=== PATIENT | female | born 1945 | race Caucasian/White ===

== ENCOUNTER 2024-01-30 15:18 | Inpatient (IN) | payer MEDICARE, OTHER, SELFPAY ==
[2024-01-30 13:16] VITALS: BP 161/82; BMI 26.9
[2024-01-30 13:31] LABS: % Basophils 0.5 % (0-2); % Immature Granulocytes 0.4 % (0-0.5); % Monocytes 8.8 % (1.7-9.3); % Neutrophils 64.3 % (42.2-75.2); Absolute Monocytes 0.7 10^3/uL (0.1-0.6); Absolute Neutrophils 4.9 10^3/uL (1.4-6.5); Hematocrit 35.9 % (37.0-47.0); Hemoglobin 12.2 g/dL (12.0-16.0); Mean Corpuscular Hgb 31.5 pg (27.0-31.0); Mean Corpuscular Volume 92.8 fL (81.0-99.0); Mean Platelet Volume 10.7 fL (7.4-10.4); Nucleated Red Blood Cells % 0 %; Platelet Count 187 10^3/uL (130-400); Red Blood Cell Count 3.87 10^6/uL (4.20-5.40); Red Cell Dist. Width 13.5 % (11.5-14.5); White Blood Cell Count 7.7 10^3/uL (4.8-10.8)
--- NOTE | 2024-01-30 13:33 | ED.GENMED ---
History of Present Illness
<Calvin Beach PA-C - Last Filed: 01/30/24 14:36>
General
Chief Complaint: Fall
Time Seen by Provider: 01/30/24 13:13
Travel History
Have you had any contact with someone who has COVID-19?: No
Do you have any symptoms of coronavirus? Fever > 100 degrees, chills, cough, shortness of breath, sore throat, loss of taste or smell, muscle aches, or headache?: No
History of Present Illness
History of Present Illness:
79-year-old female with history of hypertension and dementia presents to the emergency department for evaluation of a right hip injury sustained after a mechanical fall. [place] when she lost her balance and fell
to the ground. There was no head strike or loss of consciousness. According to the she is at her baseline mental status. On arrival she has notable shortening and external rotation of the right lower extremity
Past History
<Calvin Beach PA-C - Last Filed: 01/30/24 14:36>
Past History
ED Past Medical History: Other (Dementia)
ED Past Surgical History: Cholecystectomy
Social History
Tobacco: Non-smoker
Alcohol: None
Personal:
Living: with family
Review of Systems
<Calvin Beach PA-C - Last Filed: 01/30/24 14:36>
Review of Systems
Allergies reviewed?: Yes
All Other Systems: ROS reviewed and negative except as documented in HPI and ROS
Phy Exam
<Calvin Beach PA-C - Last Filed: 01/30/24 14:36>
Physical Exam
Physical Exam:
GEN: Well appearing, NAD, WDWN
HEENT: Oral mucosa moist, no scleral icterus
Cardiac: Regular rate
Lung: No respiratory distress, no tachypnea
MSK: Shortening and external rotation of the right lower extremity, no gross tenderness, right dorsalis pedis pulse 2+, sensation to the right foot intact
Skin: Good color, no pallor or jaundice, no rashes
Neuro: Alert and oriented to baseline according to
Psych: Calm, cooperative
Course
<Calvin Beach PA-C - Last Filed: 01/30/24 14:36>
Orders/Labs/Results
Orders:
Orders
01/30/24 13:13
CR Hip - RT w/wo Pel 2-3 Vw* Urgent
Comment:
Reason For Exam: fall
Include a pelvis x-ray?: Yes
01/30/24 13:25
Complete Blood Count/With Diff Urgent
Comprehensive Metabolic Panel Urgent
01/30/24 14:35
HYDROmorphone [Dilaudid] 0.2 mg IV NOW STA
01/30/24 14:46
Admit/Transfer Patient As Directed
Co-Sign Provider:
Level of Care: Inpatient admission
Assign to:: Medical/Surgical
Physician / Group: Hospitalist
Diagnosis: Broken hip
Reason for Hospitalization: Broken hip
Expected length of stay greater than two midnights?: Yes
ELOS- Estimated Length of Stay in days: 3
I certify the patient meets the requirements for IP care: Yes
01/30/24 14:48
Code Status As Directed
Resuscitation Status: Full Code
01/30/24 Dinner
Regular
quetiapine 50 mg PO DAILY@1500
01/31/24 Breakfast
NPO
Allow oral meds: Yes
Allow clear liquids: 4hrs prior to procedure
NPO for procedure after (time): midnight
Comment: may have unrestricted clear liquid up to 4 hrs prior to scheduled procedure
Abnormal Lab Results
01/30/24
13:25
RBC 3.87 L 10^6/uL
(4.20-5.40)
Hct 35.9 L %
(37.0-47.0)
MCH 31.5 H pg
(27.0-31.0)
MPV 10.7 H fL
(7.4-10.4)
Absolute Monos (auto) 0.7 H 10^3/uL
(0.1-0.6)
Chloride 108 H mmol/L
(98-107)
BUN 22 H mg/dl
(7-17)
Glucose 102 H mg/dl
(70-99)
01/30/24 13:25
01/30/24 13:25
Vital Signs
Initial and Last Documented VS:
Initial Vital Signs
Temp Pulse Resp BP Pulse Ox
98.6 F 79 14 161/82 97
01/30/24 13:16 01/30/24 13:16 01/30/24 13:16 01/30/24 13:16 01/30/24 13:16
Last Documented Vital Signs
Temp Pulse Resp BP Pulse Ox
98.6 F 79 14 161/82 97
01/30/24 13:16 01/30/24 13:16 01/30/24 13:16 01/30/24 13:16 01/30/24 13:16
<Elizabeth Shetty MD - Last Filed: 01/30/24 15:01>
Orders/Labs/Results
Orders:
Orders
01/30/24 13:13
CR Hip - RT w/wo Pel 2-3 Vw* Urgent
Comment:
Reason For Exam: fall
Include a pelvis x-ray?: Yes
01/30/24 13:25
Complete Blood Count/With Diff Urgent
Comprehensive Metabolic Panel Urgent
01/30/24 14:35
HYDROmorphone [Dilaudid] 0.2 mg IV NOW STA
01/30/24 14:46
Admit/Transfer Patient As Directed
Co-Sign Provider:
Level of Care: Inpatient admission
Assign to:: Medical/Surgical
Physician / Group: Hospitalist
Diagnosis: Broken hip
Reason for Hospitalization: Broken hip
Expected length of stay greater than two midnights?: Yes
ELOS- Estimated Length of Stay in days: 3
I certify the patient meets the requirements for IP care: Yes
01/30/24 14:48
Code Status As Directed
Resuscitation Status: Full Code
01/30/24 Dinner
Regular
quetiapine 50 mg PO DAILY@1500
01/31/24 Breakfast
NPO
Allow oral meds: Yes
Allow clear liquids: 4hrs prior to procedure
NPO for procedure after (time): midnight
Comment: may have unrestricted clear liquid up to 4 hrs prior to scheduled procedure
Abnormal Lab Results
01/30/24
13:25
RBC 3.87 L 10^6/uL
(4.20-5.40)
Hct 35.9 L %
(37.0-47.0)
MCH 31.5 H pg
(27.0-31.0)
MPV 10.7 H fL
(7.4-10.4)
Absolute Monos (auto) 0.7 H 10^3/uL
(0.1-0.6)
Chloride 108 H mmol/L
(98-107)
BUN 22 H mg/dl
(7-17)
Glucose 102 H mg/dl
(70-99)
01/30/24 13:25
01/30/24 13:25
Vital Signs
Initial and Last Documented VS:
Initial Vital Signs
Temp Pulse Resp BP Pulse Ox
98.6 F 79 14 161/82 97
01/30/24 13:16 01/30/24 13:16 01/30/24 13:16 01/30/24 13:16 01/30/24 13:16
Last Documented Vital Signs
Temp Pulse Resp BP Pulse Ox
98.6 F 79 14 161/82 97
01/30/24 13:16 01/30/24 13:16 01/30/24 13:16 01/30/24 13:16 01/30/24 13:16
<Calvin Beach PA-C - Last Filed: 01/30/24 14:36>
MDM/Problems Addressed
MDM/Problems Addressed:
Right hip and pelvis x-rays independently interpreted by me show a partially displaced right intertrochanteric fracture. Will admit to the hospitalist service for orthopedic consultation and further management
<Calvin Beach PA-C - Last Filed: 01/30/24 14:36>
*Critical Care Note
Total Time (30-74mins, 75-104mins- exclusive of procedures): Not Applicable
ED Attending Note
<Calvin Beach PA-C - Last Filed: 01/30/24 14:36>
-
Portions of this chart may have been created with voice recognition software.� Occasional wrong word or��sound alike� substitutions may have occurred due to the inherent limitations of voice recognition software.
<Elizabeth Shetty MD - Last Filed: 01/30/24 15:01>
ED Attending Note
Patient seen and examined by attending physician: Yes
I performed the substantive portion of visit, reviewed & personally made and approve the management plan that is documented in note by myself or ERNIE.: Yes
ED Attending Note:
Patient looks well and comfortable. She is strong pulses in bilateral feet. There is no evidence of head trauma.
Discharge Plan
Departure
Patient Disposition: Admit
Date of Disposition: 01/30/24
Time of Disposition: 13:52
Admit to: Med/Surg
Presentation/result/management discussed w/ accepting MD/DO: Hospitalist
Discharge Problem:
Intertrochanteric fracture of right hip
Prescriptions:
No Action
donepezil 5 MG tablet
5 mg PO HS
lisinopril [Zestril] 5 MG tablet
5 mg PO HS
rosuvastatin 5 MG tablet
5 mg PO HS
acetaminophen [Tylenol Extra Strength] 500 mg Tablet
500 mg PO BIDPRN PRN (Reason: mild pain)
lorazepam 0.5 mg Tablet
0.5 mg PO TID PRN (Reason: severe agitation)
quetiapine 50 mg Tablet
50 mg PO DAILY@1500
quetiapine 50 mg Tablet
100 mg PO HS
quetiapine 50 mg Tablet
25 mg PO DAILY PRN (Reason: agitation)
Interventions
Interventions:
*Risk Screen - Suicide Last Done: 01/30/24 13:16
*General Assessment Last Done: 01/30/24 13:16
*Neglect/Abuse Screening Last Done: 01/30/24 13:16
ED- Fall Risk Assessment Last Done: 01/30/24 13:16
*ED COVID-19 Vaccine History Last Done: 01/30/24 13:16
ED-Musculoskeletal Assessment Last Done: 01/30/24 13:16
ED- Neurological Assessment Last Done: 01/30/24 13:16
ED-Skin Assessment Last Done: 01/30/24 13:16
Discharge Date and Time
Print Language: PARAGUAYAN
[2024-01-30 13:49] LABS: ALT (SGPT) 23 U/L (0-35); AST (SGOT) 28 U/L (14-36); Albumin 4.2 g/dl (3.5-5.0); Alkaline Phosphatase 84 U/L (38-126); Blood Urea Nitrogen 22 mg/dl (7-17); Calcium 9.6 mg/dl (8.4-10.2); Carbon Dioxide 27 mmol/L (22-30); Chloride 108 mmol/L (98-107); Estimated Creatinine Clearance 58 ml/min; Glucose 102 mg/dl (70-99); Potassium 4.2 mmol/L (3.5-5.1); Sodium 138 mmol/L (135-145); Total Bilirubin 0.6 mg/dl (0.2-1.3); Total Protein 6.6 g/dl (6.3-8.2); eGFR > 60.00
--- NOTE | 2024-01-30 14:27 | HPS.HSE ---
Family Physician
-
Family Physician: Leanna Triana
Chief Complaint
-
Fall and hip pain
History of Present Illness
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 She fell and was unable to walk. She could not provide any history due to her dementia (Alzheimer dz, 7 years into diagnosis).
States she is comfortable if not moving her leg. Lots of pain if she does. Xray shows broken right hip.
Medical History
Past Medical History
Past Medical History: Reports Other
Additional Past Medical History:
Tricompartment osteoarthritis of left knee
Primary osteoarthritis of left knee
Alzheimer's dz
Essential HTN
Hypercholesterolemia
Depression
Past Surgical History: Reports None
Social History
Unable to obtain full social history at this time due to: Dementia
Tobacco: Non-smoker
Alcohol: None
Drug: None
Personal:
Living: With Family
Employment: Not Employed
Family History
Family History: Not pertinent
Allergies / Home Medications
Allergies reflects when Allergies were last updated in [facility].
Home Medications with original date entered in [facility]
Allergy/Medication List:
Allergies
Allergy/AdvReac Type Severity Reaction Status Date / Time
NKA - No Known Allergies Allergy NKDA Uncoded 05/08/19 11:01
Home Medications
donepezil 5 mg tablet 5 mg PO HS 05/08/19
lisinopril 5 mg tablet (Zestril) 5 mg PO HS 05/08/19
rosuvastatin 5 mg tablet 5 mg PO HS 05/08/19
acetaminophen 500 mg tablet (Tylenol Extra Strength) 500 mg PO BIDPRN PRN mild pain 01/30/24
lorazepam 0.5 mg tablet 0.5 mg PO TID PRN severe agitation 01/30/24
quetiapine 50 mg tablet 25 mg PO DAILY PRN agitation 01/30/24
quetiapine 50 mg tablet 50 mg PO DAILY@1500 01/30/24
quetiapine 50 mg tablet 100 mg PO HS 01/30/24
Review of Systems
-
Unable to obtain full review of systems at this time due to: Dementia
History Source: Patient
A 12 point ROS was completed and negative except as noted: Yes
Physical Exam
Vital Signs
Vital Signs
Temp Pulse Resp BP Pulse Ox
98.6 F 79 14 161/82 97
01/30/24 13:16 01/30/24 13:16 01/30/24 13:16 01/30/24 13:16 01/30/24 13:16
Physical Exam
General: Well Developed, Well Nourished, No Apparent Distress, Comfortable and Conversant
HEENT: NormoCephalic, Anicteric, Moist mucous membranes, Atraumatic, No Ptosis, Nose Appears Normal and Ears Appear Normal
Respiratory: Clear
Cardiac: S1/S2 and Irregular Rhythm
GI: Soft, Non Tender and Non Distended
Musculoskeletal: No Clubbing, No Cyanosis and No Edema
Skin: Warm and Dry; No Rash or Jaundice
Neuro: Awake and Alert
Psych: Calm and Confused
Laboratory Results
-
01/30/24 13:25
01/30/24 13:25
Laboratory Results
Total Bilirubin 0.6 mg/dl (0.2-1.3) 01/30/24 13:25
AST 28 U/L (14-36) 01/30/24 13:25
ALT 23 U/L (0-35) 01/30/24 13:25
Alkaline Phosphatase 84 U/L (38-126) 01/30/24 13:25
Data Reviewed
-
Lab Data: Labs Reviewed by me
Impression/Plan
-
IMPRESSION:
79 woman fell and broke her hip. h/o significant dementia. will have to consent to surgery.
She used to work at .
PLAN:
1. Broken hip. ER contacted ortho surgery.
NPO after midnight
Pain control as needed
2. Significant dementia with depression
Continue PO dementia meds and depression meds
Allow to stay as long as possible with her
3. BUN/Creat > 20
Encourage po fluids today
Full code
VCD for DVTp
[2024-01-30] MEDS: DILAUDID 0.200000000000000011 MG IV (14:51)
[2024-01-30] MEDS: SEROQUEL 50 MG PO (15:14)
--- NOTE | 2024-01-30 15:43 | CM ---
CM following re: discharge planning.
Reviewed pt's chart, met with pt. Pt's , daughter and son in law at bedside.
Pt is a 79 year old female, arrived to OR after she fell at a restaurant and broke her hip. Pt is not a great historian due o Dementia, information obtained from pt's family. Both pt and her family are aware that pt will be admitted to the hospital
with a plan for OR tomorrow. 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 No DME, VN or SNF history.
Pt's family is aware that pt will need a short term rehab after hip surgery, they expressed thie agreement and [facility] preferred. For a back up plan - [facility]. CM will make a referral to above SNFs after OR and PT/OT
evaluations.
PCP: Leanna Triana.
Pharmacy: [facility].
D/C plan: preferred SNF. [facility] or [facility].
CM will follow with discharge plan updates as hospitalization progresses
[2024-01-30] MEDS: ATIVAN 0.5 MG PO (16:15)
[2024-01-30] MEDS: TYLENOL 650 MG PO ×2 (16:15→21:20)
[2024-01-30 16:17] VITALS: BP 156/71
[2024-01-30 16:24] VITALS: BMI 29.3
--- NOTE | 2024-01-30 16:37 | PTCARENOTE ---
pt admitted to room 2104 from the ED. pt w/hx of Alzheimer dementia and short term memory loss. at bedside. provided medical history and information for admission database. stated pain increases Molly's confusion and
agitation. he requested a dose of PRN Lorazepam. pt medicated per NOV. pt oriented to room, call lynn and bed controls. pt requiring frequent reminders to situation and need to remain on bedrest due to broken leg. will observe.
--- NOTE | 2024-01-30 19:01 | W.PN.UPDATE ---
Update Note
Progress Note Update
Full consult dictated. 79 yo female brought to [facility] after a fall at a restaurant earlier today as she was unable to ambulate. Patient landed on her knees and right hip after missing a step. Patient with history of dementia and at bedside.
Patient lives with her at home in a single level home and was using no assistive devices prior to her fall for ambulation. Patient was a previous employee at in [employer]. PE: VSS. Confused due to dementia. Pulm: nonlabored. CV: regular.
Abd: soft. RLE: shortened and ER. Tender with ROM. NVI distally. Calf soft. Bruising about both knees which her states is new since her fall earlier today. Healed incision over her left knee from prior LTKR performed by Dr. Jefferson at
[place]. Xrays reveal a right hip fracture about the distal femoral neck and appears to involve the greater trochanter with mild displacement. Labs without concern. Have discussed treatment plan with the patient and her . Risks,
complications, benefits and postop expectations discussed. Consent obtained from due to dementia. Plan for surgery tomorrow AM. Planning for ORIF with [place] sliding hip screw and side plate.
[2024-01-30] MEDS: HEPARIN 5000 UNITS SC (21:19)
[2024-01-30] MEDS: COLACE 100 MG PO (21:19)
[2024-01-30] MEDS: CRESTOR 5 MG PO (21:20)
[2024-01-30] MEDS: SENOKOT 17.1999999999999993 MG PO (21:20)
[2024-01-30] MEDS: ZESTRIL 5 MG PO (21:20)
[2024-01-30] MEDS: SEROQUEL 100 MG PO (21:20)
[2024-01-30] MEDS: ARICEPT 5 MG PO (21:20)
[2024-01-30] MEDS: DILAUDID 0.25 MG IV (21:56)
[2024-01-30 23:10] VITALS: BP 135/76
[2024-01-31] VITALS (10 sets, daily range): BP systolic 119–138; BP diastolic 63–79; PULSE 73–77; O2SAT 98
[2024-01-31] MEDS: TYLENOL PO ×2 (00:54→13:03)
[2024-01-31] MEDS: TYLENOL 650 MG PO ×5 (04:12→23:35)
[2024-01-31] MEDS: ROXICODONE 5 MG PO ×2 (06:25→16:37)
[2024-01-31] MEDS: DILAUDID 0.25 MG IV ×3 (09:56→18:09)
[2024-01-31] MEDS: NORMOSOL-R 1000 IV ×2 (10:28→21:05)
[2024-01-31] MEDS: HEPARIN 5000 UNITS SC (12:00)
[2024-01-31] MEDS: SENOKOT 17.1999999999999993 MG PO ×2 (13:10→20:58)
[2024-01-31] MEDS: COLACE 100 MG PO (13:11)
--- NOTE | 2024-01-31 15:16 | W.PN.HOSP.TC ---
Today's Communication/Plan
-
see bold
Assessment / Plan
Assessment / Plan
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 She fell and was unable to walk. She could not provide any history due to her dementia (Alzheimer dz, 7 years into
diagnosis). States she is comfortable if not moving her leg. Lots of pain if she does. Xray shows broken right hip.
#Acute right distal femoral neck fracture
Appreciate orthopedic surgery input, status post ORIF on 01/30
PT/OT, pain control, laxatives
#Dementia
Continue Aricept, Seroquel, Ativan as needed
#Hyperlipidemia
Continue statin
#Benign essential hypertension
Continue lisinopril 5 mg at bedtime
DVT prophylaxis�subcu Lovenox
DNR
Total time spent to see the patient on the floor, examine the patient, review data and lab results, discuss treatment plan with patient, nursing staff around 35 minutes.
Physical Exam
General: No acute distress
HEENT: Normocephalic, Atraumatic, EOMI, MMM
Respiratory: Clear to Auscultation bilaterally
Cardiac: Normal S1/S2, Regular Rate and Rhythm
GI: Soft, Nontender, Nondistended, Normal Bowel Sounds
Extremities: No Clubbing, Cyanosis, or Edema
Musculoskeletal: Right hip dressing in place
Neuro: Pleasantly confused
Anticipated Discharge: > 48 hours
Subjective/Interval History
-
Date of Service: January 31, 2024
Patient seen after her surgery. States her pain is well-controlled. No nausea, no vomiting. No fever.
Objective Data
-
Vital Signs:
Vital Signs
Temp Pulse Resp BP Pulse Ox
98.0 F 79 20 135/76 96
01/30/24 23:10 01/30/24 23:10 01/30/24 23:10 01/30/24 23:10 01/30/24 23:10
I&O
01/30/24 01/31/24 02/01/24
06:59 06:59 06:59
Intake Total 60 / 60
Balance 60 / 60
[2024-01-31] MEDS: SEROQUEL 50 MG PO (16:38)
[2024-01-31] MEDS: ANCEF 5 IV ×2 (16:39→23:36)
[2024-01-31] MEDS: LOVENOX 40 MG SC (16:40)
[2024-01-31] MEDS: MIRALAX 17 GRAMS PO (20:58)
[2024-01-31] MEDS: ARICEPT 5 MG PO (21:00)
[2024-01-31] MEDS: SEROQUEL 100 MG PO (21:00)
[2024-01-31] MEDS: ZESTRIL 5 MG PO (21:00)
[2024-01-31] MEDS: CRESTOR 5 MG PO (21:00)
[2024-02-01] MEDS: DILAUDID 0.25 MG IV ×3 (00:34→22:19)
--- NOTE | 2024-02-01 00:40 | PTCARENOTE ---
Patient's significant other rang call lynn stating patient needed to use BSC; When Abductor pillow was removed to assist patient to BSC, she started yelling, became restless, angry, irritable, uncooperative and stated she did not have to use BSC,
and to leave her alone and to not touch her; explained to significant other and patient that Abductor pillow had to be placed to keep leg aligned; significant other disagreed, raising his voice and stating that when she 'gets like this at home he
leaves her alone'; I explained that I would simply replace the Abductor pillow, place her in a safe position, MedSitter can watch her, and I showed significant other the family waiting room where he was welcome to rest away from patient as he stated
he does; Patient had refused the PO Ativan; Dilaudid 0.25 mg IV administered at 00:34 for comfort/pain with relief.
[2024-02-01 03:55] VITALS: BP 128/64
[2024-02-01] MEDS: TYLENOL 650 MG PO ×5 (04:31→20:20)
[2024-02-01 05:48] LABS: Hematocrit 25.8 % (37.0-47.0); Mean Corp Hgb Conc. 32.9 g/dL (33.0-37.0); Mean Corpuscular Hgb 31.8 pg (27.0-31.0); Mean Corpuscular Volume 96.6 fL (81.0-99.0); Mean Platelet Volume 11.2 fL (7.4-10.4); Platelet Count 128 10^3/uL (130-400); Red Blood Cell Count 2.67 10^6/uL (4.20-5.40); Red Cell Dist. Width 13.7 % (11.5-14.5)
[2024-02-01 05:51] LABS: Hemoglobin 8.5 g/dL (12.0-16.0)
[2024-02-01 06:17] LABS: ALT (SGPT) 22 U/L (0-35); AST (SGOT) 47 U/L (14-36); Albumin 2.7 g/dl (3.5-5.0); Alkaline Phosphatase 60 U/L (38-126); Blood Urea Nitrogen 20 mg/dl (7-17); Calcium 8.1 mg/dl (8.4-10.2); Carbon Dioxide 28 mmol/L (22-30); Chloride 107 mmol/L (98-107); Direct Bilirubin 0.3 mg/dl (0.0-0.4); Estimated Creatinine Clearance 70 ml/min; Glucose 114 mg/dl (70-99); Magnesium 2.4 mg/dl (1.6-2.3); Potassium 3.6 mmol/L (3.5-5.1); Sodium 138 mmol/L (135-145); Total Bilirubin 0.5 mg/dl (0.2-1.3); Total Protein 4.8 g/dl (6.3-8.2); eGFR > 60.00
[2024-02-01 07:30] VITALS: BP 124/62
--- NOTE | 2024-02-01 08:06 | W.PN.HOSP.TC ---
Today's Communication/Plan
-
See how she does in PT today 9
Monitor H&H with drop in hemoglobin but also stop IV fluids
D/C Lovenox/aspirin prophylaxis as per orthopedics
Hopefully for discharge to a rehab facility within the next 24 hours based on PT
Assessment / Plan
Assessment / Plan
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 She fell and was unable to walk. She could not provide any history due to her dementia (Alzheimer dz, 7 years into
diagnosis). States she is comfortable if not moving her leg. Lots of pain if she does. Xray shows broken right hip.
#Acute right distal femoral neck fracture
Appreciate orthopedic surgery input, status post ORIF on 01/30
PT/OT, pain control, laxatives/will need rehab
# Acute blood loss anemia
-Hemoglobin dropped from 4.2-8.5
-May be partly diet additional
-Discontinue IV fluids
-Recheck H&H in a.m.
-Thrombocytopenia postop
-Stop enoxaparin DVT prophylaxis
-Continue aspirin DVT prophylaxis as per orthopedics
#Dementia
Continue Aricept, Seroquel, Ativan as needed
#Hyperlipidemia
Continue statin
#Benign essential hypertension
Continue lisinopril 5 mg at bedtime
DVT prophylaxis�subcu Lovenox will be discontinued as orthopedics placed on aspirin prophylaxis and also developing thrombocytopenia
DNR
Total time spent to see the patient on the floor, examine the patient, review data and lab results, discuss treatment plan with patient, nursing staff around 35 minutes.
Physical Exam
General: No acute distress
HEENT: Normocephalic, Atraumatic, EOMI, MMM
Respiratory: Clear to Auscultation bilaterally
Cardiac: Normal S1/S2, Regular Rate and Rhythm
GI: Soft, Nontender, Nondistended, Normal Bowel Sounds
Extremities: No Clubbing, Cyanosis, or Edema
Musculoskeletal: Right hip dressing in place
Neuro: Pleasantly confused
Anticipated Discharge: Within 24 hours
Subjective/Interval History
-
Date of Service: February 01, 2024
Pam chair for the last hour without symptoms of lightheadedness or shortness of breath at bedside who stayed overnight. Patient was observed med sitter overnight.
Objective Data
-
Labs:
Laboratory Results
02/01/24
05:35
WBC 6.0
Hgb 8.5 L D
Hct 25.8 L
Plt Count 128 L D
Sodium 138
Potassium 3.6
Chloride 107
Carbon Dioxide 28
BUN 20 H
Creatinine 0.6
Glucose 114 H
Calcium 8.1 L D
Total Bilirubin 0.5
AST 47 H
ALT 22
Alkaline Phosphatase 60
Vital Signs:
Vital Signs
Temp Pulse Resp BP Pulse Ox
98.1 F 92 17 124/62 94
02/01/24 07:30 02/01/24 07:30 02/01/24 07:30 02/01/24 07:30 02/01/24 07:30
I&O
01/31/24 02/01/24 02/02/24
06:59 06:59 06:59
Intake Total 60 / 60 1539 / 1539 1140 / 1140
Balance 60 / 60 1539 / 1539 1140 / 1140
Review of Systems
-
Unable to obtain full review of systems at this time due to: Dementia
History Source: Patient and Family
Constitutional: Reports Weakness
EENT: Reports No Symptoms Reported
Respiratory: Reports No Symptoms
Abdomen/GI: Reports No Symptoms
Physical Exam
-
General: Well Developed
HEENT: Normocephalic
Respiratory: Clear to Auscultation
Cardiac: Regular Rhythm
Musculoskeletal: Edema, Right Lower Extrem (Right hip incision with Aquacel small amount of strikethrough)
Skin: Warm
Neuro: Awake and Alert
Psych: Confused and Apparent Dementia
Data Reviewed
-
Total Time Spent with Patient (in minutes): 45
Labs: Labs Reviewed by me
[2024-02-01] MEDS: MIRALAX 17 GRAMS PO ×2 (08:24→20:20)
[2024-02-01] MEDS: SENOKOT 17.1999999999999993 MG PO ×2 (08:24→20:20)
--- NOTE | 2024-02-01 09:51 | W.PN.ORTHO ---
Today's Communication / Plan
-
Patient doing and feeling well this morning, POD#1 Right hip ORIF
Would anticipate the plan being SNF when medically optimized, appreciate CM
Hgb 8.5 this AM, but w/o symptoms
Continue WBAT B/L LEs on walker with assistance
PT/OT
ASA 325mg daily x 4 weeks for DVT ppx
Pain control, avoid narcotics
Dressing to remain 7- 10 days
Would recommend outpatient follow in 2 weeks for staple removal
Will follow up tomorrow AM
Assessment
.
Distal Motor Intact: Yes
Dressing:
Clean, dry and intact. Aquacel in place right thigh with mild, contained, strikethrough
Assessment:
POD#1 ORIF right hip
Overall doing well
Calf soft, nontender
Plan
.
Surgery / Date: Right hip ORIF February 11 ([place])
DVT Prophylaxis: Aspirin
Activity:
Out of bed. WBAT RLE on walker
PT/OT
Discharge Plan: SNF
Subjective
.
.:
Patient seated comfortably in the chair at the bedside. and son present. No significant pain at all. Transferred to the chair easily.
Vital Signs and Labs
.
Vital Signs and Labs:
Lab Results
02/01/24 05:35
02/01/24 05:35
Temp Pulse Resp BP Pulse Ox
98.1 F 92 17 124/62 94
02/01/24 07:30 02/01/24 07:30 02/01/24 07:30 02/01/24 07:30 02/01/24 07:30
[2024-02-01 10:36] VITALS: BP 107/66; PULSE 95; O2SAT 98
[2024-02-01 10:41] VITALS: BP 107/66; PULSE 96; O2SAT 98
--- NOTE | 2024-02-01 11:58 | PTCARENOTE ---
pt with urinary frequency-unsure if pt forgets she had just voided-pt assisted to BSC multiple times and voiding small amounts of tawanda urine.
at 1100, bladder scan revealed 481ml. pt assisted to BSC-slow process due to confusion and recent hip fracture. pt incontinent of small amount of urine and voided moderate amount on BSC. pt assisted to return to bed and called approximately 5
minutes later to go to the bathroom. pt reoriented frequently. does not recall -oriented to self only, remains confused to time, place and situation. will observe.
[2024-02-01] MEDS: NORMOSOL-R IV (12:28)
[2024-02-01 13:16] LABS: Urine Albumin Trace (Neg - Trace); Urine Bilirubin Negative (Negative); Urine Character Clear (Clear); Urine Color Yellow; Urine Glucose Negative (Negative); Urine Ketone Trace (Negative); Urine Leukocyte Trace (Negative); Urine Nitrite Negative (Negative); Urine Occult Blood 4+ (Negative); Urine Urobilinogen Negative (Neg - 1+)
[2024-02-01 13:49] LABS: Urine Amorphous Seen; Urine Bacteria Few (Negative); Urine Mucus Few; Urine Squamous Cell 0-2 /LPF (Few); Urine White Cell 0-2 /HPF (0-5)
--- NOTE | 2024-02-01 14:40 | CM ---
POD #1 R hip ORIF. Therapy recommendation for SNF. Preferences are [facility]. Referrals to be sent.
[2024-02-01] MEDS: SEROQUEL 50 MG PO (14:42)
[2024-02-01 15:10] VITALS: BP 110/63
--- NOTE | 2024-02-01 15:28 | PN.CDI ---
CDI
- -
CDI:
Physician Documentation Request
Admit Date: 01/30/24 15:18
Dear Doctor Delfina,
Clinical Indicators:
Patient admitted with right intertrochanteric hip fracture; s/p ORIF 01/30
PMH includes dementia.
01/29 Ativan 0.5 mg po x 1 dose.
01/31 RN note, '...she started yelling, became restless, angry, irritable, uncooperative and stated she did not have to use BSC, and to leave her alone and to not touch her;'
Please clarify any associated manifestations of the dementia:
Dementia with agitation
Dementia without agitation
Other, please specify
Use of terms such as suspected, likely, concern for, or probable (associated with a specific diagnosis that is being evaluated, monitored, or treated as if it exists) are acceptable and can be coded in the inpatient setting, when documented at the
time of discharge.
Thank you,
MICKI Fletcher RN
CDI Specialist
available via tiger text
Please use your independent medical judgment in providing your response.
[2024-02-01] MEDS: ATIVAN 0.5 MG PO (15:54)
--- NOTE | 2024-02-01 16:34 | PTCARENOTE ---
pt with increasing agitation -trying to get out of bed-telling and daughter at bedside she is going home. medicated with scheduled Seroquel -pt took oral medication with no difficulty. medicated at family request w/PRN Ativan per NOV. pt
again took with no difficulty. pt then attempting to get out of bed. assisted to use RW at bedside. pt became uncooperative. screaming and yelling that we were holding her hostage. pt assisted to BSC-voided 100 ml tawanda urine. then assisted to
return to bed-screaming in pain-incontinent of large amount of urine. medicated with IV Dilaudid per NOV. will observe.
[2024-02-01 19:46] LABS: Hepatitis C Antibody Negative (Negative)
[2024-02-01] MEDS: CRESTOR 5 MG PO (21:17)
[2024-02-01] MEDS: SEROQUEL 100 MG PO (21:17)
[2024-02-01] MEDS: ARICEPT 5 MG PO (21:18)
[2024-02-01] MEDS: ZESTRIL 5 MG PO (21:18)
[2024-02-01 23:40] VITALS: BP 123/64
[2024-02-02] MEDS: TYLENOL PO (00:52)
[2024-02-02] MEDS: TYLENOL 650 MG PO ×5 (03:45→20:41)
[2024-02-02 05:16] LABS: Hematocrit 23.4 % (37.0-47.0); Hemoglobin 7.9 g/dL (12.0-16.0); Mean Corp Hgb Conc. 33.8 g/dL (33.0-37.0); Mean Corpuscular Hgb 31.7 pg (27.0-31.0); Mean Platelet Volume 11.6 fL (7.4-10.4); Platelet Count 126 10^3/uL (130-400); Red Blood Cell Count 2.49 10^6/uL (4.20-5.40); Red Cell Dist. Width 13.7 % (11.5-14.5); White Blood Cell Count 6.5 10^3/uL (4.8-10.8)
[2024-02-02 05:38] LABS: Blood Urea Nitrogen 21 mg/dl (7-17); Calcium 8.5 mg/dl (8.4-10.2); Carbon Dioxide 26 mmol/L (22-30); Chloride 108 mmol/L (98-107); Estimated Creatinine Clearance 70 ml/min; Glucose 111 mg/dl (70-99); Potassium 3.7 mmol/L (3.5-5.1); Sodium 138 mmol/L (135-145); eGFR > 60.00
--- NOTE | 2024-02-02 06:59 | W.PN.ORTHO ---
Today's Communication / Plan
-
PT/OT
Weightbearing as tolerated
Aspirin for DVT prophylaxis
custodial facility once medically stable
Skin clip removal 2 weeks postop
Follow-up Dr. Dale 4 weeks postop
Assessment
.
Distal Motor Intact: Yes
Dressing:
Clean, dry and intact.
Plan
.
Surgery / Date: Right hip ORIF February 11 ([place])
DVT Prophylaxis: Aspirin
Activity:
Out of bed.
PT/OT
Discharge Plan: SNF
Subjective
.
.:
Patient resting comfortably.
Vital Signs and Labs
.
Vital Signs and Labs:
Lab Results
02/02/24 04:34
02/02/24 04:34
Temp Pulse Resp BP Pulse Ox
98.1 F 89 18 123/64 95
02/01/24 23:40 02/01/24 23:40 02/01/24 23:40 02/01/24 23:40 02/01/24 23:40
[2024-02-02 07:17] VITALS: BP 114/61
--- NOTE | 2024-02-02 07:49 | W.PN.HOSP.TC ---
Addendum entered and electronically signed by Andre Mathis MD 02/02/24 15:49:
Dementia with agitation
Original Note:
Today's Communication/Plan
-
Patient medically stable for discharge to rehab
Discussed with spouse at bedside
Follow-up with orthopedics in 4 weeks and clip removal from right hip 2 weeks postop
Assessment / Plan
Assessment / Plan
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 She fell and was unable to walk. She could not provide any history due to her dementia (Alzheimer dz, 7 years into
diagnosis). States she is comfortable if not moving her leg. Lots of pain if she does. Xray shows broken right hip.
#Acute right distal femoral neck fracture
Appreciate orthopedic surgery input, status post ORIF on 01/30
Per Ortho weightbearing as tolerated aspirin DVT prophylaxis
Skin clip removal from right hip 2 weeks. And follow-up with Dr. Dale 4 weeks
PT/OT, pain control, laxatives/will need rehab
# Acute blood loss anemia
-Hemoglobin dropped from 4.2-8.5>> 7.9/remains hemodynamically stable
-May be partly diet additional
-Discontinue IV fluids
-Recheck H&H in a.m.
-Thrombocytopenia postop
-Stop enoxaparin DVT prophylaxis
-Continue aspirin DVT prophylaxis as per orthopedics
#Dementia
Continue Aricept, Seroquel, Ativan as needed
#Hyperlipidemia
Continue statin
#Benign essential hypertension
Continue lisinopril 5 mg at bedtime
DVT prophylaxis�subcu Lovenox will be discontinued as orthopedics placed on aspirin prophylaxis and also developing thrombocytopenia
DNR
Total time spent to see the patient on the floor, examine the patient, review data and lab results, discuss treatment plan with patient, nursing staff around 35 minutes.
Physical Exam
General: No acute distress
HEENT: Normocephalic, Atraumatic, EOMI, MMM
Respiratory: Clear to Auscultation bilaterally
Cardiac: Normal S1/S2, Regular Rate and Rhythm
GI: Soft, Nontender, Nondistended, Normal Bowel Sounds
Extremities: No Clubbing, Cyanosis, or Edema
Musculoskeletal: Right hip dressing in place
Neuro: Pleasantly confused
Anticipated Discharge: Today (Okay for discharge today once the facility found)
Subjective/Interval History
-
Date of Service: February 02, 2024
Somewhat stoic this morning not very interactive but does look up at bedside did fairly well with PT but had to be frequently redirected with both PT and OT modalities/ states has to talk to case management as to his choices for rehab
Objective Data
-
Labs:
Laboratory Results
02/02/24
04:34
WBC 6.5
Hgb 7.9 L
Hct 23.4 L
Plt Count 126 L
Sodium 138
Potassium 3.7
Chloride 108 H
Carbon Dioxide 26
BUN 21 H
Creatinine 0.6
Glucose 111 H
Calcium 8.5
Vital Signs:
Vital Signs
Temp Pulse Resp BP Pulse Ox
98.1 F 89 18 123/64 95
02/01/24 23:40 02/01/24 23:40 02/01/24 23:40 02/01/24 23:40 02/01/24 23:40
I&O
02/01/24 02/02/24 02/03/24
06:59 06:59 06:59
Intake Total 1539 / 1539 1560 / 1560
Output Total 125 / 125
Balance 1539 / 1539 1435 / 1435
Review of Systems
-
Unable to obtain full review of systems at this time due to: Dementia
History Source: Patient and Family
Constitutional: Reports Weakness
Respiratory: Reports No Symptoms
Cardiac: Reports No Symptoms
Abdomen/GI: Reports No Symptoms
Physical Exam
-
General: Well Developed
HEENT: Normocephalic
Respiratory: Clear to Auscultation
Cardiac: Tachycardic
Breast: Deferred by me
GI: Soft
Musculoskeletal: Edema, Right Lower Extrem
Psych: Calm and Apparent Dementia
Data Reviewed
-
Total Time Spent with Patient (in minutes): 56
Labs: Labs Reviewed by me (Hemoglobin down to 7.9 but hemodynamically stable)
[2024-02-02] MEDS: DILAUDID 0.25 MG IV ×3 (08:00→19:59)
[2024-02-02] MEDS: SENOKOT 17.1999999999999993 MG PO ×2 (09:49→20:41)
[2024-02-02] MEDS: ASPIRIN 325 MG PO (09:49)
[2024-02-02] MEDS: FEOSOL 325 MG PO ×2 (09:49→20:42)
[2024-02-02] MEDS: MIRALAX 17 GRAMS PO (09:49)
[2024-02-02] MEDS: ROXICODONE 5 MG PO ×2 (11:39→15:43)
--- NOTE | 2024-02-02 14:14 | CM ---
Discharge Plan of Care: Therapy recommendation for [facility]. [facility] has accepted with available bed on Thursday02/03/24. Patient, family, MD, team aware.
NURSE TO NURSE # [phone]
FAX # [phone]
[2024-02-02 14:45] VITALS: BP 114/59; PULSE 86
[2024-02-02] MEDS: SEROQUEL 50 MG PO (15:05)
[2024-02-02 15:22] VITALS: BP 134/72
[2024-02-02 16:27] LABS: COVID-19 Antigen Negative (Negative)
[2024-02-02] MEDS: ATIVAN 0.5 MG PO (20:18)
[2024-02-02] MEDS: SEROQUEL 100 MG PO (20:41)
[2024-02-02] MEDS: CRESTOR 5 MG PO (20:41)
[2024-02-02] MEDS: ZESTRIL 5 MG PO (20:42)
[2024-02-02] MEDS: ARICEPT 5 MG PO (20:44)
[2024-02-02] MEDS: MIRALAX PO (20:46)
[2024-02-02 23:46] VITALS: BP 111/52
[2024-02-03] MEDS: TYLENOL PO (00:04)
[2024-02-03] MEDS: DILAUDID 0.25 MG IV ×3 (00:58→07:57)
[2024-02-03] MEDS: SEROQUEL 25 MG PO (02:50)
--- NOTE | 2024-02-03 03:29 | DOWNTIME ---
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 Downtime documentation of patient's care, including medication administrations, has been reconciled in the electronic record per guidelines. Refer to the
patient's paper chart under the miscellaneous tab to see printed paper medication records and downtime forms.
[2024-02-03] MEDS: TYLENOL 650 MG PO ×4 (03:40→15:07)
--- NOTE | 2024-02-03 03:44 | PTCARENOTE ---
pt uncooperative, has not voided this shift, nurse attempted to bladder scan her however pt becomes agitated, aggressive and combative towards staff. Pt's spouse was notified and he will be in this am so that nurse may attempt to bladder scan.
[2024-02-03 07:04] LABS: Hematocrit 25.3 % (37.0-47.0); Hemoglobin 8.3 g/dL (12.0-16.0); Mean Corp Hgb Conc. 32.8 g/dL (33.0-37.0); Mean Corpuscular Hgb 31.4 pg (27.0-31.0); Mean Corpuscular Volume 95.8 fL (81.0-99.0); Mean Platelet Volume 11.9 fL (7.4-10.4); Platelet Count 142 10^3/uL (130-400); Red Blood Cell Count 2.64 10^6/uL (4.20-5.40); White Blood Cell Count 8.1 10^3/uL (4.8-10.8)
--- NOTE | 2024-02-03 07:22 | W.PN.UPDATE ---
Addendum entered and electronically signed by Andre Mathis MD 02/03/24 11:26:
In addition patient was noted after my note and seen the patient that was continued to have some postvoid residuals of is much is a 475 cc of retained urine and she will be placed on Flomax started today and should be continued in the rehab setting
in the hopes that further activity may warrant less postvoid residual a point of reference the patient in the preop setting was also noted to have some increased postvoid residual and this may have been on a chronic basis and largely asymptomatic
due to her underlying dementia.
Original Note:
Update Note
Progress Note Update
Patient seen and examined on date of discharge
Comfortable no distress
Poor historian due to underlying dementia
Repeat CBC reviewed and now trending up hemoglobin at 8.3 from 7.9
Hemodynamically stable
COVID antigen negative in preparation for discharge to [facility] today
--- NOTE | 2024-02-03 07:27 | W.DS.TRANS ---
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
-
Discharge Instructions:
Discharge Diagnosis/Procedures Status post right hip fracture with ORIF
Acute blood loss anemia
Borderline thrombocytopenia
Underlying dementia
Diet No restrictions
Activity As tolerated,With Walker
Additional Activity Weightbearing as tolerated
Driving Restrictions No driving
Instructions:
Stand-Alone Forms:
Changes to Home Medications: Yes
Discharge Medications:
DC Medications w/original date entered in [employer]
donepezil 5 mg tablet 5 mg PO HS 05/08/19
lisinopril 5 mg tablet (Zestril) 5 mg PO HS 05/08/19
rosuvastatin 5 mg tablet 5 mg PO HS 05/08/19
acetaminophen 500 mg tablet (Tylenol Extra Strength) 500 mg PO BIDPRN PRN mild pain 01/30/24
lorazepam 0.5 mg tablet 0.5 mg PO TID PRN severe agitation 01/30/24
quetiapine 50 mg tablet 25 mg PO DAILY PRN agitation 01/30/24
quetiapine 50 mg tablet 50 mg PO DAILY@1500 01/30/24
quetiapine 50 mg tablet 100 mg PO HS 01/30/24
aspirin 325 mg tablet 325 mg PO DAILY Blood clot prevention/tx #20 tabs 02/03/24
ferrous sulfate 325 mg (65 mg iron) tablet (FeroSul) 325 mg PO BID Supplement #30 tabs 02/03/24
oxycodone 5 mg capsule 5 mg PO Q8H PRN Pain #20 caps 02/03/24
Home Medication Changes
aspirin 325 mg tablet 325 mg PO DAILY Blood clot prevention/tx #20 tabs 02/03/24
ferrous sulfate 325 mg (65 mg iron) tablet (FeroSul) 325 mg PO BID Supplement #30 tabs 02/03/24
oxycodone 5 mg capsule 5 mg PO Q8H PRN Pain #20 caps 02/03/24
Pending Results: No
[2024-02-03 07:28] VITALS: BP 111/57
[2024-02-03 07:37] LABS: Blood Urea Nitrogen 32 mg/dl (7-17); Calcium 8.8 mg/dl (8.4-10.2); Carbon Dioxide 27 mmol/L (22-30); Chloride 105 mmol/L (98-107); Estimated Creatinine Clearance 53 ml/min; Glucose 107 mg/dl (70-99); Potassium 4.1 mmol/L (3.5-5.1); Sodium 135 mmol/L (135-145); eGFR > 60.00
[2024-02-03] MEDS: FEOSOL 325 MG PO (10:20)
[2024-02-03] MEDS: ASPIRIN 325 MG PO (10:20)
[2024-02-03] MEDS: MIRALAX 17 GRAMS PO (10:20)
[2024-02-03] MEDS: SENOKOT 17.1999999999999993 MG PO (10:20)
[2024-02-03] MEDS: FLOMAX 0.400000000000000022 MG PO (10:22)
--- NOTE | 2024-02-03 11:29 | W.DCSUMMARY ---
Discharge Summary
Discharge Data
Date of Admission: 01/30/24
Date of Discharge: 02/03/24
-
Pending Results: No
Hospital Course
79-year-old female with advanced dementia had a mechanical fall and presented to the ED of [facility] inability to weight-bear and was found to have an acute angulated nondisplaced intertrochanteric right hip fracture prompting need for
admission to the medical service and orthopedic consultation for operative repair.
As noted she has advanced dementia with underlying periods of agitation and underlying depression. Otherwise her comorbidities included hyperlipidemia and essential hypertension she was continued on lisinopril nightly and mechanical DVT prophylaxis
as the patient had imminent need for ORIF which was undertaken on 30 January by the orthopedic service of Dr. Dale. She had some acute blood loss anemia with hemoglobin dropping from 14-8.5 some of which was felt to be dilutional. She had no
hemodynamic compromise or symptomatology or significant impairment in her PT progress with weightbearing as tolerated as dictated by orthopedics along with aspirin DVT prophylaxis of 325 mg daily plan was for skin clip removal in 2 weeks
postoperative and follow-up with Dr. Dale in 4 weeks postop. We did choose to add iron supplementation given her levels up. Blood loss anemia which also started to trend up time of discharge she was also noted to have some postvoid residual of
at least 400 cc and she was placed on tamsulosin going forward as suspect that the patient may have been having unrealized postvoid residuals and given her level of dementia was undeclared. Otherwise she is now stable for discharge to a rehab
facility she has undergone a COVID antigen test that proved negative she will continue on quetiapine at bedtime and daily and as needed for agitation she was given oxycodone 5 mg every 8 hours as needed for pain at discharge.
Discharge Plan
-
Patient Disposition: Retirement/SNF
Discharge Diagnosis/Procedures: Status post right hip fracture with ORIF
Acute blood loss anemia
Borderline thrombocytopenia
Underlying dementia
Increased postvoid residual
Diet: No restrictions
Activity: As tolerated and With Walker
Additional Activity: Weightbearing as tolerated
Driving Restrictions: No driving
Referrals:
Leanna Triana, [Family Provider] - in two to four weeks
Prescriptions:
New
aspirin 325 mg Tablet
325 mg PO DAILY Qty: 20 0RF
ferrous sulfate [FeroSul] 325 mg (65 mg iron) Tablet
325 mg PO BID Qty: 30 0RF
oxycodone 5 mg capsule
5 mg PO Q8H PRN (Reason: Pain) Qty: 20 0RF
tamsulosin 0.4 mg capsule
0.4 mg PO HS Qty: 20 0RF
Continued
donepezil 5 MG tablet
5 mg PO HS
lisinopril [Zestril] 5 MG tablet
5 mg PO HS
rosuvastatin 5 MG tablet
5 mg PO HS
acetaminophen [Tylenol Extra Strength] 500 mg Tablet
500 mg PO BIDPRN PRN (Reason: mild pain)
lorazepam 0.5 mg Tablet
0.5 mg PO TID PRN (Reason: severe agitation)
quetiapine 50 mg Tablet
50 mg PO DAILY@1500
quetiapine 50 mg Tablet
100 mg PO HS
quetiapine 50 mg Tablet
25 mg PO DAILY PRN (Reason: agitation)
Discharge Orders:
Discharge Patient (As Directed); Ordered 02/03/24
Ordered By: Andre Mathis
Discharge Date and Time
Print Language: MALAWIAN
[2024-02-03] MEDS: ROXICODONE 5 MG PO (13:44)
[2024-02-03] MEDS: SEROQUEL 50 MG PO (14:06)
[2024-02-03] MEDS: ATIVAN 0.5 MG PO (15:06)
[2024-02-03 15:31] VITALS: BP 141/82
== END 2024-02-03 16:05 | DRG 481 ==
LOC: 2 SOUTH 15:18
PROVIDERS: Family Medicine; Orthopaedic Surgery; Physician Assistant; ADMITTING PHYSICIAN Internal Medicine; ATTENDING PHYSICIAN Internal Medicine; EMERGENCY PHYSICIAN Emergency Medicine; FAMILY PHYSICIAN Internal Medicine
PROC: 0QS604Z Reposition Right Upper Femur with Internal Fixation Device, Open Approach (ICD-10-PCS; 2024-01-31)
DX: S72.141A Displaced intertrochanteric fracture of right femur, initial encounter for closed fracture (principal); D62 Acute posthemorrhagic anemia; F02.811 Dementia in other diseases classified elsewhere, unspecified severity, with agitation; I10 Essential (primary) hypertension; F32.A Depression, unspecified; M17.12 Unilateral primary osteoarthritis, left knee; E78.00 Pure hypercholesterolemia, unspecified; E78.5 Hyperlipidemia, unspecified; D69.6 Thrombocytopenia, unspecified; G30.9 Alzheimer's disease, unspecified; W10.8XXA Fall (on) (from) other stairs and steps, initial encounter; Y93.01 Activity, walking, marching and hiking; Y92.511 Restaurant or cafe as the place of occurrence of the external cause; Z66 Do not resuscitate; Z11.52 Encounter for screening for COVID-19
CPT/HCPCS: 73502; 76000; 80048; 80053; 81003; 81015; 82248; 83735; 85025; 85027; 86803; 87811; 96374; 97116; 97163; 97167; 97530; 97535; 99284; C1713

== ENCOUNTER → 2024-03-08 14:14 | Outpatient (REF) | payer MEDICARE, OTHER, SELFPAY | LOC: HWRAD 14:14 | PROVIDERS: ATTENDING PHYSICIAN Family Medicine; FAMILY PHYSICIAN Internal Medicine | DX: M80.051D Age-related osteoporosis with current pathological fracture, right femur, subsequent encounter for fracture with routine healing (principal); M85.89 Other specified disorders of bone density and structure, multiple sites | CPT/HCPCS: 77080 ==

== ENCOUNTER → 2024-03-09 13:40 | Outpatient (REF) | payer MEDICARE, OTHER, SELFPAY ==
[2024-03-09 15:37] LABS: Urine Albumin Trace (Neg - Trace); Urine Bilirubin Negative (Negative); Urine Character Slightly Cloudy (Clear); Urine Color Yellow; Urine Glucose Negative (Negative); Urine Ketone Negative (Negative); Urine Leukocyte 2+ (Negative); Urine Nitrite Positive (Negative); Urine Occult Blood 1+ (Negative); Urine Specific Gravity 1.015 (<1.030); Urine Urobilinogen Negative (Neg - 1+)
[2024-03-09 15:38] LABS: % Eosinophils 0.2 % (0-6); % Immature Granulocytes 0.4 % (0-0.5); % Lymphocytes 29.2 % (20.5-51.1); % Monocytes 10.1 % (1.7-9.3); % Neutrophils 59.1 % (42.2-75.2); Absolute Basophils 0.1 10^3/uL (0-0.2); Absolute Lymphocytes 1.5 10^3/uL (1.2-3.4); Absolute Monocytes 0.5 10^3/uL (0.1-0.6); Hemoglobin 10.3 g/dL (12.0-16.0); Mean Corp Hgb Conc. 32.2 g/dL (33.0-37.0); Mean Corpuscular Hgb 30.9 pg (27.0-31.0); Mean Corpuscular Volume 96.1 fL (81.0-99.0); Mean Platelet Volume 10.6 fL (7.4-10.4); Nucleated Red Blood Cells % 0 %; Platelet Count 272 10^3/uL (130-400); Red Blood Cell Count 3.33 10^6/uL (4.20-5.40); Red Cell Dist. Width 14.6 % (11.5-14.5); White Blood Cell Count 5.1 10^3/uL (4.8-10.8)
[2024-03-09 15:53] LABS: ALT (SGPT) 14 U/L (0-35); AST (SGOT) 27 U/L (14-36); Albumin 3.8 g/dl (3.5-5.0); Alkaline Phosphatase 106 U/L (38-126); Blood Urea Nitrogen 14 mg/dl (7-17); Calcium 9.6 mg/dl (8.4-10.2); Carbon Dioxide 28 mmol/L (22-30); Chloride 106 mmol/L (98-107); Glucose 102 mg/dl (70-99); Potassium 4.1 mmol/L (3.5-5.1); Sodium 139 mmol/L (135-145); Total Bilirubin 0.5 mg/dl (0.2-1.3); eGFR > 60.00
[2024-03-09 16:10] LABS: Vitamin D, 25-OH*** 19.8 ng/mL (30-80)
[2024-03-09 16:23] LABS: TSH Reflex To Free T4 1.06 uIU/ml (0.47-4.68)
[2024-03-09 17:50] LABS: Urine White Cell 30-40 /HPF (0-5)
[2024-03-09 17:51] LABS: Urine Red Blood Cell 0-2 /HPF (0-2)
== END ==
LOC: HWLAB 13:40
PROVIDERS: ATTENDING PHYSICIAN Family Medicine; FAMILY PHYSICIAN Internal Medicine
DX: R63.4 Abnormal weight loss (principal); R10.9 Unspecified abdominal pain; M80.051D Age-related osteoporosis with current pathological fracture, right femur, subsequent encounter for fracture with routine healing
CPT/HCPCS: 36415; 80053; 81003; 81015; 82306; 84443; 85025; 87077; 87086; 87186

== ENCOUNTER 2024-05-03 19:39 | Emergency (ER) | payer MEDICARE, OTHER, SELFPAY ==
[2024-05-03 19:42] VITALS: BP 135/77
[2024-05-03 20:07] LABS: % Basophils 0.3 % (0-2); % Eosinophils 0.4 % (0-6); % Immature Granulocytes 0.5 % (0-0.5); % Neutrophils 91.8 % (42.2-75.2); Absolute Eosinophils 0.1 10^3/uL (0-0.7); Absolute Immature Granulocytes 0.1 10^3/uL (0-0.05); Absolute Lymphocytes 0.5 10^3/uL (1.2-3.4); Absolute Monocytes 0.4 10^3/uL (0.1-0.6); Absolute Neutrophils 11.8 10^3/uL (1.4-6.5); Hematocrit 33.4 % (37.0-47.0); Hemoglobin 11.6 g/dL (12.0-16.0); Mean Corp Hgb Conc. 34.7 g/dL (33.0-37.0); Mean Corpuscular Hgb 30.6 pg (27.0-31.0); Mean Corpuscular Volume 88.1 fL (81.0-99.0); Mean Platelet Volume 11.7 fL (7.4-10.4); Nucleated Red Blood Cells % 0 %; Platelet Count 127 10^3/uL (130-400); Red Blood Cell Count 3.79 10^6/uL (4.20-5.40); Red Cell Dist. Width 14.1 % (11.5-14.5); White Blood Cell Count 12.8 10^3/uL (4.8-10.8)
[2024-05-03 20:27] LABS: ALT (SGPT) 35 U/L (0-35); AST (SGOT) 31 U/L (14-36); Albumin 3.7 g/dl (3.5-5.0); Alkaline Phosphatase 164 U/L (38-126); Blood Urea Nitrogen 39 mg/dl (7-17); Calcium 8.7 mg/dl (8.4-10.2); Carbon Dioxide 20 mmol/L (22-30); Chloride 107 mmol/L (98-107); Glucose 167 mg/dl (70-99); Potassium 3.2 mmol/L (3.5-5.1); Sodium 138 mmol/L (135-145); Total Bilirubin 0.7 mg/dl (0.2-1.3); Total Protein 5.9 g/dl (6.3-8.2); eGFR 51.75
[2024-05-03 20:45] VITALS: BP 142/80
[2024-05-03 20:55] VITALS: BMI 22.7
[2024-05-03 21:00] VITALS: BP 141/81
--- NOTE | 2024-05-03 21:19 | ED.GENMED ---
History of Present Illness
General
Chief Complaint: Weakness
Source: patient
Exam Limitations: none
Time Seen by Provider: 05/03/24 20:37
Nursing documentation reviewed up to this point in time: agreed with
History of Present Illness
History of Present Illness:
Patient with history of Alzheimer's disease, diagnosed 7 years ago, presents to ED with family, secondary to generalized weakness/fatigue, along with lack of oral intake over the past 5 days. Denies fever or chills. Denies nausea, vomiting, or
diarrhea. Denies coughing. Denies headache. Denies dizziness. Denies rash. Denies sick contact. Denies recent change in medications or diet. Per spouse, patient went to sleep on Thursday night, complaining of feeling tired. Patient proceeded
to sleep all day for the past 3 days, without eating. Over the past 12 hours, patient is noted to be significantly weak and unable to walk. Family spoke with patient's neurologist, who recommended patient come to ED for evaluation, for potential
of dehydration/infection versus CVA.
Past History
Past History
ED Past Medical History: Other (Dementia)
ED Past Surgical History: Cholecystectomy
Social History
Tobacco: Non-smoker
Alcohol: None
Personal:
Living: with family
Review of Systems
Review of Systems
Allergies reviewed?: Yes
All Other Systems: ROS reviewed and negative except as documented in HPI and ROS
Constitutional: Reports no symptoms; Denies fever
Respiratory: Reports no symptoms
Cardiac: Reports no symptoms
ABD/GI: Reports no symptoms
: Reports no symptoms
Musculoskeletal: Reports no symptoms
Skin: Reports no symptoms
Neurological: Reports weakness
Phy Exam
Physical Exam
Physical Exam:
Physical Exam
General: no apparent distress, not acutely ill. afebrile
Head: nc/at. eomi
Neck: supple. no meningeal signs.
Heart: s1/s2 regular rate and rhythm, no murmur. equal radial pulses.
Lungs: no acute respiratory distress. clear bilaterally
Abdomen: normal bowel sounds. not tender.
Neuro: alert and oriented x 2. no focal neurological deficits
Skin: no rash
Psychiatric: well kept. interactive and cooperative
Extremities: no edema. no calf tenderness.
Course
Orders/Labs/Results
Orders:
Orders
05/03/24 19:51
CMP [Comprehensive Metabolic Panel] Urgent
Complete Blood Count/With Diff Urgent
Magnesium Urgent
Comment: ADD ON
05/03/24 20:37
Add On- LAB Urgent
Tests Added?: magnesium
05/03/24 20:38
Electrocardiogram (*1) Urgent
Reason for Study: Fatigue / Weakness
EKG- Treatment ONCE
05/03/24 21:14
COVID-19 Antigen Urgent
Source: Nasal Swab
Troponin I Urgent
05/03/24 22:02
Rectal Temp- Treatment ONCE
05/03/24 22:10
CT Head W/o Iv Contrast Urgent
Comment:
Reason For Exam: weakness
Straight cath- Treatment ONCE
05/03/24 22:18
Lorazepam [Ativan] 0.5 mg IV NOW STA
05/03/24 22:26
Urinalysis Reflex To Culture Urgent
Date Specimen was Collected: 05/03/24
Time Specimen was Collected: 22:24
Urine Microscopic Reflex Cult Urgent
Urine Culture Urgent
FABIANA Source: U
Specimen Description:
Date Specimen was Collected: 05/03/24
Time Specimen was Collected: 22:24
05/03/24 22:55
0.9% Sodium Chloride 1000 ml [Nss] 1,000 ml IV BOLUS
CefTRIAXone [Rocephin] 1,000 mg IV NOW STA
Potassium Chloride [KCl] 40 meq PO NOW STA
05/03/24 23:39
Acetaminophen [Tylenol] 650 mg PO NOW STA
05/03/24 23:44
Acetaminophen 1000MG/100Ml [Ofirmev] 1,000 mg in 100 ml IV ONCE
Acetaminophen IV Indication:: ED Narcotic History-ONCE
Abnormal Lab Results
05/03/24 05/03/24
19:51 22:26
WBC 12.8 H 10^3/uL
(4.8-10.8)
RBC 3.79 L 10^6/uL
(4.20-5.40)
Hgb 11.6 L g/dL
(12.0-16.0)
Hct 33.4 L %
(37.0-47.0)
Plt Count 127 L 10^3/uL
(130-400)
MPV 11.7 H fL
(7.4-10.4)
Abs Immat Gran (auto) 0.1 H 10^3/uL
(0-0.05)
Absolute Neuts (auto) 11.8 H 10^3/uL
(1.4-6.5)
Absolute Lymphs (auto) 0.5 L 10^3/uL
(1.2-3.4)
Neutrophils % 91.8 H %
(42.2-75.2)
Lymphocytes % 4.0 L %
(20.5-51.1)
Potassium 3.2 L mmol/L
(3.5-5.1)
Carbon Dioxide 20 L mmol/L
(22-30)
BUN 39 H mg/dl
(7-17)
Creatinine 1.1 H mg/dL
(0.6-1.0)
Glucose 167 H mg/dl
(70-99)
Alkaline Phosphatase 164 H U/L
(38-126)
Total Protein 5.9 L g/dl
(6.3-8.2)
Ur Occult Blood Reflex 4+ A
(Negative)
Urine Nitrite (Reflex) Positive A
(Negative)
Leukocyte Esterase Rfl 2+ A
(Negative)
Urine RBC 3-6 A /HPF
(0-2)
Urine WBC (Reflex) 80-90 A /HPF
(0-5)
Urine Bacteria (Reflex) Many A
(Negative)
Urine Albumin (Reflex) 2+ A
(Neg - Trace)
05/03/24 19:51
05/03/24 19:51
Vital Signs
Initial and Last Documented VS:
Initial Vital Signs
Temp Pulse Resp BP Pulse Ox
100.1 F 96 18 135/77 96
05/03/24 19:42 05/03/24 19:42 05/03/24 19:42 05/03/24 19:42 05/03/24 19:42
Last Documented Vital Signs
Temp Pulse Resp BP Pulse Ox
100.9 F H 84 19 145/77 97
05/03/24 22:30 05/04/24 00:35 05/04/24 00:35 05/03/24 22:00 05/03/24 22:15
MDM/Problems Addressed
MDM/Problems Addressed:
History and exam consistent with UTI, causing patient's mental status change as well as decreased oral intake. Discussed treatment options with family members, in light of patient's underlying Alzheimer's disease. At this time, family feels that
patient will benefit from being discharged home, where she can take her antibiotics. As such, decision made to discharge patient home after receiving IV fluids and IV Rocephin. Patient will be continue antibiotics via [employer] for the next 6 more
days. Advised PCP follow-up or return to ED for reevaluation, if her symptoms do not improve after 48 hours.
*EKG
Interpreted by ED Provider?: Yes
EKG Intrepretation Date: 05/03/24
Heart Rate: 84
Rate: normal
Rhythm: sinus
[place]: normal axis
Interval: normal interval
*Critical Care Note
Total Time (30-74mins, 75-104mins- exclusive of procedures): Not Applicable
ED Attending Note
-
Portions of this chart may have been created with voice recognition software.� Occasional wrong word or��sound alike� substitutions may have occurred due to the inherent limitations of voice recognition software.
Discharge Plan
Departure
Patient Disposition: Home (Routine Discharge)
Date of Disposition: 05/03/24
Time of Disposition: 23:39
Patient with high blood pressure during this ER visit?: Yes
Condition: Good
Discharge Problem:
Acute UTI
Instructions: Urinary Tract Infection, Adult ED
Prescriptions:
New
cefdinir 300 mg capsule
300 mg PO BID Qty: 12 0RF
No Action
donepezil 5 MG tablet
5 mg PO HS
lisinopril [Zestril] 5 MG tablet
5 mg PO HS
rosuvastatin 5 MG tablet
5 mg PO HS
acetaminophen [Tylenol Extra Strength] 500 mg Tablet
500 mg PO BIDPRN PRN (Reason: mild pain)
lorazepam 0.5 mg Tablet
0.5 mg PO TID PRN (Reason: severe agitation)
quetiapine 50 mg Tablet
50 mg PO DAILY@1500
quetiapine 50 mg Tablet
100 mg PO HS
quetiapine 50 mg Tablet
25 mg PO DAILY PRN (Reason: agitation)
aspirin 325 mg Tablet
325 mg PO DAILY Qty: 20 0RF
ferrous sulfate [FeroSul] 325 mg (65 mg iron) Tablet
325 mg PO BID Qty: 30 0RF
oxycodone 5 mg capsule
5 mg PO Q8H PRN (Reason: Pain) Qty: 20 0RF
tamsulosin 0.4 mg capsule
0.4 mg PO HS Qty: 20 0RF
Referrals:
Leanna Triana, DO [Family Provider] -
Activity Restrictions/Additional Instructions:
As discussed, please follow-up with your primary care physician for reevaluation. Your prescription has been sent electronically to [facility] pharmacy in [place].
Interventions
Interventions:
*Risk Screen - Suicide Last Done: 05/03/24 20:47
*General Assessment Last Done: 05/03/24 20:47
*Neglect/Abuse Screening Last Done: 05/03/24 20:47
ED- Fall Risk Assessment Last Done: 05/03/24 20:47
*ED COVID-19 Vaccine History Last Done: 05/03/24 20:47
ED- Cardiac Assessment Last Done: 05/03/24 20:50
ED- Neurological Assessment Last Done: 05/03/24 20:47
ED- Pulmonary Assessment Last Done: 05/03/24 20:47
Discharge Date and Time
Print Language: DIVEHI
[2024-05-03 21:22] LABS: Magnesium 2.1 mg/dl (1.6-2.3)
[2024-05-03 21:34] LABS: COVID-19 Antigen Negative (Negative)
[2024-05-03 21:46] LABS: Troponin I 0.018 ng/ml
[2024-05-03 22:00] VITALS: BP 145/77
[2024-05-03] MEDS: ATIVAN 0.5 MG IV (22:34)
[2024-05-03 22:39] LABS: Urine Albumin 2+ (Neg - Trace); Urine Bilirubin Negative (Negative); Urine Character Clear (Clear); Urine Color Yellow; Urine Glucose Negative (Negative); Urine Ketone Negative (Negative); Urine Leukocyte 2+ (Negative); Urine Nitrite Positive (Negative); Urine Occult Blood 4+ (Negative); Urine Urobilinogen Negative (Neg - 1+)
[2024-05-03 22:45] LABS: Urine Squamous Cell 0-2 /LPF (Few)
[2024-05-03 22:47] LABS: Urine Bacteria Many (Negative); Urine White Cell 80-90 /HPF (0-5)
[2024-05-03] MEDS: ROCEPHIN 1000 MG IV (23:34)
[2024-05-03] MEDS: NSS 1000 IV (23:34)
[2024-05-03] MEDS: KCL 40 MEQ PO (23:37)
[2024-05-03] MEDS: OFIRMEV 100 IV (23:48)
[2024-05-04 00:40] VITALS: BP 122/77
== END 2024-05-04 00:40 | disposition home or self-care (01) ==
LOC: EMR 19:39
PROVIDERS: EMERGENCY PHYSICIAN Emergency Medicine; FAMILY PHYSICIAN Internal Medicine
DX: N39.0 Urinary tract infection, site not specified (principal); F02.80 Dementia in other diseases classified elsewhere, unspecified severity, without behavioral disturbance, psychotic disturbance, mood disturbance, and anxiety; G30.9 Alzheimer's disease, unspecified; Z90.49 Acquired absence of other specified parts of digestive tract
CPT/HCPCS: 99284; 70450; 80053; 81003; 81015; 83735; 84484; 85025; 87077; 87086; 87186; 87811; 93005